=== PATIENT | female | born 1990 | race Caucasian/White ===

== ENCOUNTER 2025-03-31 14:03 | Day surgery (SDC) | payer OTHER ==
[2025-03-31 14:38] VITALS: BMI 31.9
[2025-03-31] MEDS ORDERED: hydrALAZINE 20 MG/ML VIAL SLOW IVP PRN (15:56)
[2025-03-31] MEDS ORDERED: Acetaminophen 500 MG TAB PO SCH (17:30)
[2025-04-01 05:22] LABS: Chlamydia by PCR, Vaginal Swab Not Detected (NotDetected); GC by PCR, Vaginal Swab Not Detected (NotDetected)
== END 2025-03-31 20:27 | disposition home or self-care (01) ==
LOC: CSHLD/OP 14:03
PROVIDERS: ATTEND Family Medicine
DX: O99.891 Other specified diseases and conditions complicating pregnancy (principal); R10.2 Pelvic and perineal pain; M54.50 Low back pain, unspecified; O36.8130 Decreased fetal movements, third trimester, not applicable or unspecified; O24.419 Gestational diabetes mellitus in pregnancy, unspecified control; O23.593 Infection of other part of genital tract in pregnancy, third trimester; N89.8 Other specified noninflammatory disorders of vagina; O99.333 Smoking (tobacco) complicating pregnancy, third trimester; F17.200 Nicotine dependence, unspecified, uncomplicated; O47.03 False labor before 37 completed weeks of gestation, third trimester; O12.03 Gestational edema, third trimester; Z3A.32 32 weeks gestation of pregnancy; Z88.6 Allergy status to analgesic agent
CPT/HCPCS: 36416; 76819; 87480; 87491; 87510; 87591; 87660; 99285